=== PATIENT | female | born 2000 ===

== ENCOUNTER → 2022-07-30 09:06 | Outpatient (BNVA) | payer OTHER, SELFPAY | PROVIDERS: Visit Provider Nurse Practitioner Women's Health | DX: N92.6 Irregular menstruation, unspecified (principal) | CPT/HCPCS: 81025 ==

== ENCOUNTER 2023-01-29 11:37 | Emergency (ER) | payer SELFPAY ==
[2023-01-29 11:38] VITALS: BP 174/113; PULSE 108; RESP 18; TEMP 36.7; O2SAT 98; BMI 41.1
--- NOTE | 2023-01-29 12:38 | XR_ITS ---
WS: [id number] Chest 2 views, 01/29/2023 Clinical Data: cough, URI Comparison: None. Findings: No nodules, masses or effusions are seen. The heart is normal. The pulmonary vascularity is not increased. No pneumonia or pneumothorax is seen. Impression: Negative chest.
--- NOTE | 2023-01-29 14:39 | W.ED.URI ---
HPI - URI/Sore Throat General: Chief Complaint: Upper Respiratory Infection Stated Complaint: cough Time Seen by Provider: 01/29/23 14:33 Source: patient Mode of arrival: ambulatory Limitations: no limitations History of Present Illness: 22-year-old female presents to clinic today for cough, congestion, and not feeling well for the last 2 weeks. Patient reports she is been taking [id number] medications including Tylenol cough and cold with minimal improvement. She reports a productive cough. She reports congestion and at times what feels like a fever at night. She never has checked it though. Denies any known sick contacts. Review of Systems General: Reports: 10 or more systems reviewed and unremarkable except in HPI and below PFSH ED PFSH: Family History Mother Breast cancer left breast cancer, type unknown. Dx at 47 yo, . Denies family history of Cervical cancer Colon cancer Ovarian cancer Diabetes Hypertension Uterine cancer Stroke Physical Exam Const: COMMON NORMALS: no acute distress, average body habitus, patient oriented x3, no limitations, healthy appearing, alert and well nourished HENMT: COMMON NORMALS: external ears normal, TM's normal bilaterally and moist oral mucous membranes NOSE: Abnormal mucous membranes and turbinates present erythematous EXTERNAL EAR: Yes external ears normal TYMPANIC MEMBRANE: TM's normal bilaterally THROAT: posterior oropharynx normal Neck/C-Spine: COMMON NORMALS: full ROM and no lymphadenopathy Resp: COMMON NORMALS: normal respiratory effort, No retractions and clear to auscultation bilaterally AUSCULTATION: clear to auscultation bilaterally Cardio: COMMON NORMALS: regular rhythm and No murmurs present (Cardio) RATE: tachycardic (mild) RHYTHM: regular rhythm GI: COMMON NORMALS: Normal to inspection, nondistended, normoactive bowel sounds present Extremity: COMMON NORMALS: normal to inspection, full ROM and no pedal edema Neuro: COMMON NORMALS: patient oriented x3 SENSORIUM/ORIENTATION: Yes alert Psych: COMMON NORMALS: mental status grossly normal, Normal thought process present and cooperative THOUGHT PROCESS: Normal thought process present Skin: COMMON NORMALS: no rashes or lesions noted and no wounds GENERAL SKIN EXAM: no rashes or lesions noted Course ED course: Patient presents to the ER after 2 weeks of upper respiratory symptoms. These do not improving with [id number] medications. We will get a chest x-ray at this time. Given the length of time this has been going on, a COVID swab is irrelevant. Patient's vitals are okay other than elevated blood pressure. Patient admits to taking decongestants regularly over the last several days for symptoms. Likely that is what is elevating blood pressure. No history of hypertension. Vital Signs: Vital signs: Vital Signs Temperature 98.1 F 01/29/23 11:38 Pulse Rate 108 H 01/29/23 11:38 Respiratory Rate 18 01/29/23 11:38 Blood Pressure 174/113 01/29/23 11:38 Pulse Oximetry 98 01/29/23 11:38 Oxygen Delivery Me thod Room Air 01/29/23 11:38 MDM - URI/Sore Throat Medical Decision Making Chest x-ray is negative. Given the length of time patient has had this, likely a bronchitis versus sinusitis causing symptoms. Patient has a productive cough. Recommended patient take Mucinex so that the cough remains productive. We will go ahead and treat with azithromycin. We will also give patient an inhaler as at times she has some shortness of breath. Recommended she push fluids. Alternate Tylenol and Motrin for fever or pain. We did not COVID swab given patient has been sick for 2 weeks. Recommended she continue to stay home as long as she has any symptoms. If symptoms do not resolve in 7 to 10 days after starting the antibiotic, follow-up with PCP. Patient verbalized understanding and was in agreement with the treatment plan. Critical Care Time Critical Care Time: Critical Care Time: No Discharge Plan Discharge Patient Disposition: Home Clinical Impression: Bronchitis Condition: Stable Prescriptions: New Zithromax Z-Eduardo 250 mg tablet See Rx Instructions PO .COMPLEX Qty: 6 0RF Rx Instructions: For 250 mg dose pack: take 500 mg today (day 1), then 250 mg for 4 days (days 2-5) Ventolin HFA 90 mcg/actuation HFA aerosol inhaler 2 inh inhalation Q4H PRN (Reason: shortness of breath or wheezing) Qty: 6.7 0RF Discharge Orders: Discharge ED (Routine); Ordered 01/29/23 Ordered By: Joi Polk Discharge Diet: Usual diet Discharge Activity: Resume usual activity Patient Instructions: Opioid Safety, Pain Management Activity Restrictions/Additional Instructions: Take azithromycin as prescribed. Take Mucinex 600 to 1200 mg twice daily as discussed. Use Ventolin inhaler for any shortness of breath. Push fluids. Tylenol alternate with Motrin for fevers or pain. Follow-up with PCP in 5 to 7 days if no improvement. Return to the ER with new or worsening symptoms. Coding Level of Care Code ED Head Packager for Eric Duckworth
[2023-01-29 14:44] VITALS: BP 150/114; PULSE 99; RESP 22; O2SAT 90
[2023-01-29 14:55] VITALS: BP 147/106; PULSE 92; RESP 20; O2SAT 90
== END 2023-01-29 14:56 | disposition home or self-care (01) ==
PROVIDERS: Emergency Provider Physician Assistant
DX: J40 Bronchitis, not specified as acute or chronic (principal)
CPT/HCPCS: 71046; 99283

== ENCOUNTER → 2025-04-25 14:02 | Outpatient (BNVA) | payer OTHER, SELFPAY | PROVIDERS: Visit Provider Nurse Practitioner Women's Health | DX: N92.6 Irregular menstruation, unspecified (principal) | CPT/HCPCS: 81025 ==

== ENCOUNTER → 2025-05-15 10:40 | Outpatient (BNVA) | payer OTHER, SELFPAY | PROVIDERS: Visit Provider Obstetrics & Gynecology | DX: Z34.90 Encounter for supervision of normal pregnancy, unspecified, unspecified trimester (principal); E66.9 Obesity, unspecified; Z3A.11 11 weeks gestation of pregnancy | CPT/HCPCS: 80307; 82950; 84315; 85025; 86592; 86762; 86803; 86850; 86900; 87086; 87340; 87491; 87591; 87624; 87661; 87806 ==